=== PATIENT | male | born 1970 | race Caucasian/White ===

== ENCOUNTER 2021-05-06 13:55 | Emergency (ER) | payer SELFPAY ==
[~2021-05-06] VITALS: Ht 172.7 cm; Wt 81.2 kg
--- NOTE | 2021-05-06 14:30 | NUR ---
BIB [facility],BILATERAL TESTICULAR PAIN SINCE YESTERDAY,DENIES ANY TRAUMA. ON ROOM AIR, BREATHING EVENLY AND UNLABORED. KEPT COMFORTABLE, WILL CONTINUE TO MONITOR ACCORDINGLY.
--- NOTE | 2021-05-06 14:33 | NUR ---
PT VOIDED. URINE SPECIMEN SENT TO LAB.
--- NOTE | 2021-05-06 14:36 | NUR ---
RADIOLOGY CALLED. U/S TECH AWARE OF ULTRASOUND ORDER. CURRENTLY WORKING ON A DIFFERENT PROCEDURE AT THIS TIME.
[2021-05-06 14:49] LABS: BILIRUBIN,URINE Negative (NEGATIVE); COLOR,URINE YELLOW (YELLOW); LEUKOCYTE ESTERASE ,URINE Trace (NEGATIVE); NITRITE, URINE Negative (NEGATIVE); PROTEIN,URINE Negative (NEGATIVE); UGLUCOSE Negative (NEGATIVE); UROBILINOGEN,URINE 0.2 EU/dL (0.2)
[2021-05-06 15:16] LABS: BACTERIA,URINE Moderate /HPF (None Seen); RBC,URINE 0-2 /HPF (0-2); SQUAMOUS EPITHELIAL CELL,UR Rare /HPF (None Seen); URINE AMORPHOUS URATE Many /HPF (None Seen); WBC,URINE 0-3 /HPF (0-3)
[2021-05-06] MEDS ORDERED: CEPH500C2 PO (18:18)
[2021-05-06] MEDS ORDERED: IBUP-1955 PO (18:19)
[2021-05-06] MEDS ORDERED: IBUPROFEN 600 MG TABLET PO ONE (18:30)
[2021-05-06] MEDS ORDERED: CEPHALEXIN MONOHYDRATE 500 MG CAPSULE PO ONE ×2 (18:30→18:37)
[2021-05-06] MEDS ORDERED: IBUPROFEN 600 MG TABLET ONE (18:37)
--- NOTE | 2021-05-06 19:37 | NUR ---
rPeethi martinez in ED - 05/06/21 at 1939 by RENEE Patient discharged to home in stable condition. Written and verbal after care instructions given. Patient verbalizes understanding of instruction.
[2021-05-06 19:38] VITALS: BP 121/66
--- NOTE | 2021-05-06 19:39 | NUR ---
Patient given written and verbal discharge instructions. Patient verbalizes understanding of instructions. Patient is ambulatory with steady gait. Refuses offer of retirement placement. Patient given list of available shelters in surrounding area.
== END 2021-05-07 | disposition home or self-care (01) ==
LOC: ER 05-07 15:47
DX: L73.9 Follicular disorder, unspecified (principal); I50.9 Heart failure, unspecified; F17.200 Nicotine dependence, unspecified, uncomplicated; Z98.890 Other specified postprocedural states; Z60.2 Problems related to living alone
CPT/HCPCS: 76870-TC; 81001; 87086-TC